=== PATIENT | male | born 1970 | race African-American/Black ===

== ENCOUNTER 2017-11-09 13:45 | Emergency (ER) | payer OTHER ==
[~2017-11-09] VITALS: Ht 167.6 cm; Wt 81.6 kg
[2017-11-09 14:43] VITALS: BP 118/67
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
[2017-11-09] MEDS ORDERED: AUGMENTIN 875-1 EAC1 ORAL (16:41)
[2017-11-09] MEDS ORDERED: TYLENOL EXTRA500 MG ORAL (16:41)
[2017-11-09 16:52] VITALS: BP 124/78
== END 2017-11-09 16:52 | disposition home or self-care (01) ==
LOC: EDBD 13:45 → EMR 13:52
DX: S02.40DA Maxillary fracture, left side, initial encounter for closed fracture (principal); Y09 Assault by unspecified means; Y93.9 Activity, unspecified; Y92.9 Unspecified place or not applicable; F10.129 Alcohol abuse with intoxication, unspecified
CPT/HCPCS: 70450; 70486; 99284